=== PATIENT | male | born 1990 | race Caucasian/White ===

== ENCOUNTER 2017-06-18 10:43 | Emergency (ER) | payer OTHER ==
[~2017-06-18] VITALS: Ht 175.3 cm; Wt 90.7 kg
[2017-06-18 10:45] VITALS: BP_SYST 126
[2017-06-18] MEDS ORDERED: FOLIC ACID 1 MG, THIAMINE HCL 100 MG, MAGNESIUM SULFATE 1 GM, MVI 10 ML in NACL 0.9% 1,... IV ONE (11:00)
[2017-06-18 11:28] LABS: BASOPHILS % (AUTO) 0.5 % (0.0-2.0); EOSINOPHILS # (AUTO) 0.2 K/uL (0.0-0.4); EOSINOPHILS % (AUTO) 2.8 % (0.0-4.0); HEMOGLOBIN 14.9 g/dL (14.0-18.0); LYMPHOCYTES # (AUTO) 3.1 K/uL (1.0-5.5); LYMPHOCYTES % (AUTO) 44.2 % (20.5-51.5); MEAN CORPUSCULAR HEMOGLOBIN 30 pg (27-31); MEAN CORPUSCULAR HGB CONC 34 % (32-36); MEAN CORPUSCULAR VOLUME 89 fL (79.0-98.0); MONOCYTES # (AUTO) 0.6 K/uL (0.0-1.0); NEUTROPHILS # (AUTO) 3.1 K/uL (1.8-7.7); NEUTROPHILS % (AUTO) 44.5 % (40.0-70.0); PLATELET COUNT (AUTO) 266 K/uL (130-430); RED BLOOD CELL COUNT(AUTO) 4.97 MIL/uL (4.2-6.2); RED CELL DISTRIBUTION WIDTH 11.6 % (9.0-15.0)
[2017-06-18] MEDS ORDERED: NACL 0.9% 1,000 ML IV ONE ×2 (11:30→13:30)
[2017-06-18 11:39] LABS: ANION GAP 12 (5-15); CALCIUM 8.9 mg/dL (8.4-11.0); CHLORIDE 104 mmol/L (98-107); CREATININE 0.77 mg/dL (0.55-1.30); GFR AFRICAN AMERICAN 160 mL/min (>90); GLUCOSE 84 mg/dL (70-99); INR 1.1 (0.80-1.20); POTASSIUM 3.6 mmol/L (3.5-5.1); PROTHROMBIN TIME 10.9 SECS (9.5-12.5); SODIUM SERUM 139 mmol/L (136-145); UREA NITROGEN, BLOOD 14 mg/dL (8-21)
[2017-06-18 11:43] LABS: BILIRUBIN,URINE NEGATIVE (NEGATIVE); BLOOD, URINE 2+ (NEGATIVE); CLARITY/URINE CLEAR (CLEAR); COLOR,URINE YELLOW (YELLOW); GLUCOSE,URINE NEGATIVE (NEGATIVE); KETONES,URINE NEGATIVE (NEGATIVE); LEUKOCYTE ESTERASE ,URINE NEGATIVE (NEGATIVE); NITRITE, URINE NEGATIVE (NEGATIVE); PH,URINE 5.5 (5.0-8.0); PROTEIN URINE NEGATIVE (NEGATIVE); UROBILINOGEN,URINE 0.2 (0.2-1.0)
[2017-06-18 11:43] LABS: ALANINE AMINOTRANSFERASE 42 U/L (12-78); ALBUMIN 4.1 g/dL (3.4-4.8); ALCOHOL, BLOOD 193 mg/dL (<10); ASPARTATE AMINOTRANSFERASE 25 U/L (10-37); TOTAL BILIRUBIN 0.6 mg/dL (0.0-1.0)
[2017-06-18 11:46] LABS: ACETAMINOPHEN < 1 ug/mL (1-30)
[2017-06-18 12:03] LABS: BARBITURATE, URINE NEGATIVE (NEG <=200); METHAMPHETAMINES SCREEN,URINE NEGATIVE (NEG <=500); URINE AMPHETAMINE POSITIVE (NEG <=500)
[2017-06-18 12:04] LABS: BENZODIAZEPINE, URINE POSITIVE (NEG <=150); CANNABINOID, URINE POSITIVE (NEG <=50); COCAINE, URINE POSITIVE (NEG <=150); OPIATE, URINE NEGATIVE (NEG <=100); PHENCYCLIDINE SCREEN,URINE NEGATIVE (NEG <=25); URINE METHADONE NEGATIVE (NEG <=200); URINE OXYCODONE SCREEN NEGATIVE (NEG <=100); URINE PROPOXYPHENE SCREEN NEGATIVE (NEG <=300)
[2017-06-18 12:05] LABS: UR TRICYCLIC ANTIDEPRESSANTS NEGATIVE (NEG <=300)
[2017-06-18 12:16] LABS: BACTERIA,URINE RARE /HPF (None Seen); MUCUS,URINE None Seen /LPF (None Seen); RBC,URINE 0-3 /HPF (0-3); WBC,URINE NONE SEEN /HPF (0-3)
[2017-06-18 15:50] VITALS: BP_SYST 122
== END 2017-06-18 15:50 | disposition left against medical advice (07) ==
LOC: SED 10:43
DX: R41.82 Altered mental status, unspecified (principal); F15.10 Other stimulant abuse, uncomplicated; F14.10 Cocaine abuse, uncomplicated
CPT/HCPCS: 36415; 51702; 70450; 80053; 80307; 81000; 82550; 83605; 84484; 85025; 85610; 85730; 87040; 96365; 99285; G0480; G0481; G0482; J3411; J3475; J3490; J7030; 93005